=== PATIENT | female | born 1940 | race Caucasian/White ===

== ENCOUNTER 2024-03-01 13:53 | Emergency (ER) | payer MEDICARE, SELFPAY ==
[2024-03-01] VITALS (24 sets, daily range): BP systolic 143–224; BP diastolic 65–112; PULSE 58–83; RESP 13–36; TEMP 37.2; O2SAT 96–100; BMI 27.3
[2024-03-01 14:42] LABS: Add Manual Diff / Slide Review NO; Basophils Absolute Auto 100 /uL (0-100); Eosinophils Absolute Auto 100 /uL (0-450); Eosinophils Percent Auto 1.8 % (2-4); Hematocrit 37.7 % (36-46); Hemoglobin 12.7 g/dL (12.0-16.0); Lymphocytes Absolute Auto 1200 /uL (1100-4500); Lymphocytes Percent Auto 19.7 % (25-40); Mean Corpuscular HGB Conc 33.5 % (30-36); Mean Corpuscular Hemoglobin 29.6 PG (26-34); Mean Corpuscular Volume 88.2 fL (80-100); Monocytes Absolute Auto 600 /uL (0-900); Monocytes Percent Auto 9.7 % (3-14); Neutrophils Absolute Auto 4100 /uL (1500-7000); Neutrophils Percent Auto 67.8 % (50-75); Platelet Count 218 X10^3/uL (150-400); Red Blood Cell Count 4.28 X10^6/uL (4.0-5.2); Red Cell Distribution Width 13.9 % (11.6-14.8)
[2024-03-01 14:48] LABS: Alanine Aminotransferase 572 IU/L (<35); Albumin 4.6 g/dL (3.5-5.0); Albumin Globulin Ratio 1.3 (1.0-2.8); Alkaline Phosphatase 626 U/L (38-126); Aspartate Aminotransferase 412 IU/L (14-36); Bilirubin Total 4.8 mg/dL (0.2-1.3); Blood Urea Nitrogen 17 mg/dL (7-17); Calcium 9.5 mg/dL (8.4-10.2); Carbon Dioxide 26 mmol/L (22-32); Chloride 103 mmol/L (98-107); Estimated Glomerular Filt Rate 49 mL/min (>60); Globulin 3.5 g/dL (1.7-4.1); Glucose 226 mg/dL (80-110); HEMOLYSIS < 15 (0-50); Potassium 4.2 mmol/L (3.4-5.1); Sodium 136 mmol/L (137-145); Total Protein 8.1 g/dL (6.3-8.2)
[2024-03-01 14:55] LABS: Lipase 2391 U/L (23-300)
--- NOTE | 2024-03-01 16:19 | ED_ITS ---
HPI - General Adult <Qing Cornejo MD - Last Filed: 03/02/24 17:37> General Chief complaint: Abdominal Pain Stated complaint: abd pain, pt turning yellow Time Seen by Provider: 03/01/24 16:19 Source: patient Mode of arrival: Ambulatory History of Present Illness HPI narrative: 83-year-old woman with a history of hypertension, asthma, chronic diastolic heart failure, kidney disease reflux recently admitted to [facility] February 04 through the with hyponatremia continues taking salt tablets and presents today complaining of lower abdominal pain, knee on yellow urine and her daughters report that they were concerned that she was developing jaundice. She has not complaining of upper abdominal pain, nausea, vomiting. Headache she has not having any fevers. Related Data Home Medications Medication Instructions Recorded Confirmed albuterol 90 mcg/actuation aerosol 90 mcg inhalation PRN Wheezing 03/02/24 inhaler amlodipine 5 mg tablet 5 mg PO DAILY 03/02/24 03/02/24 aspirin 81 mg tablet,delayed 81 mg PO DAILY 03/02/24 03/02/24 release cholecalciferol (vitamin D3) 25 25 mcg PO DAILY 03/02/24 03/02/24 mcg (1,000 unit) tablet citalopram 20 mg tablet 20 mg PO DAILY 03/02/24 03/02/24 fluticasone propionate 50 1 spray intranasal DAILY PRN 03/02/24 03/02/24 mcg/actuation nasal Congestion spray,suspension losartan 100 mg tablet 100 mg PO DAILY 03/02/24 03/02/24 simvastatin 20 mg tablet 20 mg PO ONCE PM 03/02/24 03/02/24 Allergies Allergy/AdvReac Type Severity Reaction Status Date / Time hydrochlorothiazide AdvReac Rash Verified 03/02/24 03:19 lisinopril AdvReac Cough Verified 03/02/24 03:19 Patient History <Qing Cornejo MD - Last Filed: 03/02/24 17:37> Social History Smoking Status: Never smoker Smoking Status: Never smoker Substance Use Type: does not use Exam <Qing Cornejo MD - Last Filed: 03/02/24 17:37> Initial Vital Signs Initial Vital Signs: Vital Signs Temperature 99 F 03/01/24 14:06 Pulse Rate 78 03/01/24 14:06 Respiratory Rate 16 03/01/24 14:06 Blood Pressure 168/69 H 03/01/24 14:06 Pulse Oximetry 96 03/01/24 14:06 Oxygen Delivery Method Room Air 03/01/24 14:06 <Julianna Lazo MD - Last Filed: 03/02/24 17:59> Initial Vital Signs Initial Vital Signs: Vital Signs Temperature 99 F 03/01/24 14:06 Pulse Rate 78 03/01/24 14:06 Respiratory Rate 16 03/01/24 14:06 Blood Pressure 168/69 H 03/01/24 14:06 Pulse Oximetry 96 03/01/24 14:06 Oxygen Delivery Method Room Air 03/01/24 14:06 Const: Awake, alert, no acute distress Eyes: Scleral icterus present Cardiac: regular rate, regular rhythm RESP: unlabored, clear bilaterally, no wheezing GI: Soft, midepigastric and right upper quadrant tenderness to deep palpation, no rebound or guarding Skin: Warm, Dry, mild jaundice noticed Neuro: AO x3, CN II-XII grossly intact, moves all extremities Course <Qing Cornejo MD - Last Filed: 03/02/24 17:37> Orders Ordered: ED Orders 03/02/24 09:33 PT [Prothrombin Time INR] Stat PTT [PTT Partial Thromboplastin Vern] Stat Bisacodyl (Bisacodyl 5 Mg Tablet) 10 mg PO DAILY [facility] Last Admin: 03/02/24 09:22 Dose: 10 mg Documented By: KRISHNA Hydromorphone HCl (Hydromorphone 0.5 Mg Inj) 0.5 mg IV Q15MIN PRN PRN Reason: Pain, Last Admin: 03/02/24 07:07 Dose: 0.5 mg Documented By: JULIETTE Ceftriaxone Sodium 2,000 mg/ (Sodium Chloride) 100 mls @ 200 mls/hr IV DAILY [facility] Last Infusion: 03/02/24 09:56 Dose: Infused Documented By: Admin: 03/02/24 09:18 Dose: 200 mls/hr Documented By: KRISHNA Ondansetron HCl (Ondansetron 4 Mg Odt) 4 mg PO NOW PRN PRN Reason: Nausea And Vomiting Ondansetron HCl (Ondansetron 4 Mg/2 Ml Inj) 4 mg IV NOW PRN PRN Reason: Nausea And Vomiting Last Admin: 03/02/24 07:05 Dose: 4 mg Documented By: JULIETTE Oxycodone/Acetaminophen (Oxycodone/Acetaminophen 5/325 Tablet) 1 tab PO Q6HR [facility] [place] Last Admin: 03/02/24 13:25 Dose: 1 tab Documented By: GIOVANI Discontinued Medications Amlodipine Besylate (Amlodipine 5 Mg Tablet) 5 mg PO NOW ONE Stop: 03/02/24 07:01 Last Admin: 03/02/24 08:06 Dose: 5 mg Documented By: KRISHNA Losartan Potassium (Losartan 50 Mg Tablet) 100 mg PO NOW ONE Stop: 03/02/24 07:01 Last Admin: 03/02/24 08:07 Dose: Not Given Documented By: KRISHNA Vital Signs Vital signs: Vital Signs - 8 hr 03/02/24 10:00 03/02/24 10:30 03/02/24 11:00 Pulse Rate 65 66 63 Respiratory Rate 24 Blood Pressure Pulse Oximetry 03/02/24 11:30 03/02/24 11:58 03/02/24 11:58 Pulse Rate 62 65 Respiratory Rate Blood Pressure 133/60 Pulse Oximetry 99 03/02/24 12:00 03/02/24 13:12 03/02/24 13:30 Pulse Rate 67 69 64 Respiratory Rate Blood Pressure Pulse Oximetry 98 98 03/02/24 14:00 03/02/24 14:30 03/02/24 15:00 Pulse Rate 65 64 68 Respiratory Rate Blood Pressure Pulse Oximetry 96 95 97 03/02/24 15:30 03/02/24 16:26 03/02/24 16:27 Pulse Rate 70 101 H Respiratory Rate Blood Pressure 181/75 H Pulse Oximetry 96 97 03/02/24 16:27 03/02/24 16:30 03/02/24 17:00 Pulse Rate 80 73 65 Respiratory Rate 17 20 Blood Pressure Pulse Oximetry 97 97 94 03/02/24 17:00 03/02/24 17:30 Pulse Rate 65 Respiratory Rate 17 Blood Pressure 133/63 Pulse Oximetry 96 <Julianna Lazo MD - Last Filed: 03/02/24 17:59> Orders Ordered: ED Orders 03/02/24 09:33 PT [Prothrombin Time INR] Stat PTT [PTT Partial Thromboplastin Vern] Stat Bisacodyl (Bisacodyl 5 Mg Tablet) 10 mg PO DAILY [facility] Last Admin: 03/02/24 09:22 Dose: 10 mg Documented By: KRISHNA Hydromorphone HCl (Hydromorphone 0.5 Mg Inj) 0.5 mg IV Q15MIN PRN PRN Reason: Pain, Last Admin: 03/02/24 07:07 Dose: 0.5 mg Documented By: JULIETTE Ceftriaxone Sodium 2,000 mg/ (Sodium Chloride) 100 mls @ 200 mls/hr IV DAILY [facility] [place] Last Infusion: 03/02/24 09:56 Dose: Infused Documented By: Admin: 03/02/24 09:18 Dose: 200 mls/hr Documented By: KIRSHNA Ondansetron HCl (Ondansetron 4 Mg Odt) 4 mg PO NOW PRN PRN Reason: Nausea And Vomiting Ondansetron HCl (Ondansetron 4 Mg/2 Ml Inj) 4 mg IV NOW PRN PRN Reason: Nausea And Vomiting Last Admin: 03/02/24 07:05 Dose: 4 mg Documented By: JULIETTE Oxycodone/Acetaminophen (Oxycodone/Acetaminophen 5/325 Tablet) 1 tab PO Q6HR [facility] [place] Last Admin: 03/02/24 13:25 Dose: 1 tab Documented By: GIOVANI Discontinued Medications Amlodipine Besylate (Amlodipine 5 Mg Tablet) 5 mg PO NOW ONE Stop: 03/02/24 07:01 Last Admin: 03/02/24 08:06 Dose: 5 mg Documented By: RKISHNA Losartan Potassium (Losartan 50 Mg Tablet) 100 mg PO NOW ONE Stop: 03/02/24 07:01 Last Admin: 03/02/24 08:07 Dose: Not Given Documented By: KRISHNA Vital Signs Vital signs: Vital Signs - 8 hr 03/02/24 10:00 03/02/24 10:30 03/02/24 11:00 Pulse Rate 65 66 63 Respiratory Rate 24 Blood Pressure Pulse Oximetry 03/02/24 11:30 03/02/24 11:58 03/02/24 11:58 Pulse Rate 62 65 Respiratory Rate Blood Pressure 133/60 Pulse Oximetry 99 03/02/24 12:00 03/02/24 13:12 03/02/24 13:30 Pulse Rate 67 69 64 Respiratory Rate Blood Pressure Pulse Oximetry 98 98 03/02/24 14:00 03/02/24 14:30 03/02/24 15:00 Pulse Rate 65 64 68 Respiratory Rate Blood Pressure Pulse Oximetry 96 95 97 03/02/24 15:30 03/02/24 16:26 03/02/24 16:27 Pulse Rate 70 101 H Respiratory Rate Blood Pressure 181/75 H Pulse Oximetry 96 97 03/02/24 16:27 03/02/24 16:30 03/02/24 17:00 Pulse Rate 80 73 65 Respiratory Rate 17 20 Blood Pressure Pulse Oximetry 97 97 94 03/02/24 17:00 03/02/24 17:30 Pulse Rate 65 Respiratory Rate 17 Blood Pressure 133/63 Pulse Oximetry 96 Medical Decision Making <Qing Cornejo MD - Last Filed: 03/02/24 17:37> Lab Data 03/02/24 06:53 03/02/24 06:53 Labs: Lab Results 03/01/24 03/01/24 03/01/24 Range/Units 14:14 16:20 17:25 WBC 6.0 5.1 (4.5-11.0) X10^3/uL RBC 4.28 4.21 (4.0-5.2) X10^6/uL Hgb 12.7 12.2 (12.0-16.0) g/dL Hct 37.7 37.0 (36-46) % MCV 88.2 88.0 (80-100) fL MCH 29.6 29.1 (26-34) PG MCHC 33.5 33.1 (30-36) % RDW 13.9 14.0 (11.6-14.8) % Plt Count 218 196 (150-400) X10^3/uL Neut % (Auto) 67.8 59.6 (50-75) % Lymph % (Auto) 19.7 L 23.3 L (25-40) % [place] % (Auto) 9.7 14.0 (3-14) % Eos % (Auto) 1.8 L 2.1 (2-4) % Baso % (Auto) 1.0 1.0 (0-2) % Neut # (Auto) 4100 3000 (8589-7745) /uL Lymph # (Auto) 1200 1200 (5216-6514) /uL [place] # (Auto) 600 700 (0-900) /uL Eos # (Auto) 100 100 (0-450) /uL Baso # (Auto) 100 100 (0-100) /uL PT (9.4-12.5) SECONDS INR (0.9-1.3) APTT (25.1-36.5) SECONDS Sodium 136 L 136 L (137-145) mmol/L Potassium 4.2 4.3 (3.4-5.1) mmol/L Chloride 103 106 (98-107) mmol/L Carbon Dioxide 26 25 (22-32) mmol/L BUN 17 18 H (7-17) mg/dL Creatinine 1.13 H 1.01 (0.52-1.04) mg/dL Estimated GFR 49 L 56 L (>60) mL/min BUN/Creatinine Ratio 15.0 17.8 (6-22) Glucose 226 H 111 H D (80-110) mg/dL Calcium 9.5 9.2 (8.4-10.2) mg/dL Total Bilirubin 4.8 H 4.4 H (0.2-1.3) mg/dL AST 412 H 374 H (14-36) IU/L ALT 572 H 531 H (<35) IU/L Alkaline Phosphatase 626 H 612 H (38-126) U/L Total Protein 8.1 7.4 (6.3-8.2) g/dL Albumin 4.6 4.2 (3.5-5.0) g/dL Globulin 3.5 3.2 (1.7-4.1) g/dL Albumin/Globulin Ratio 1.3 1.3 (1.0-2.8) Lipase 2391 H (23-300) U/L Urine RBC None seen (0-5/HPF) Urine WBC 1-5/hpf (0-5/HPF) Ur Squamous Epith Cells 1-5 /hpf (0-5/HPF) Urine Bacteria Many (>30) H (None) Ur Culture Indicated? Specimen cultured Vol Urine Centrifuged 10ml (spun) 03/02/24 03/02/24 Range/Units 06:53 09:33 WBC 6.0 (4.5-11.0) X10^3/uL RBC 4.17 (4.0-5.2) X10^6/uL Hgb 12.2 (12.0-16.0) g/dL Hct 36.6 (36-46) % MCV 87.8 (80-100) fL MCH 29.2 (26-34) PG MCHC 33.2 (30-36) % RDW 14.0 (11.6-14.8) % Plt Count 219 (150-400) X10^3/uL Neut % (Auto) 68.2 (50-75) % Lymph % (Auto) 16.9 L (25-40) % [place] % (Auto) 11.5 (3-14) % Eos % (Auto) 2.4 (2-4) % Baso % (Auto) 1.0 (0-2) % Neut # (Auto) 4100 (1016-3651) /uL Lymph # (Auto) 1000 L (8714-2055) /uL [place] # (Auto) 700 (0-900) /uL Eos # (Auto) 100 (0-450) /uL Baso # (Auto) 100 (0-100) /uL PT 12.9 H (9.4-12.5) SECONDS INR 1.1 (0.9-1.3) APTT 34 (25.1-36.5) SECONDS Sodium 136 L (137-145) mmol/L Potassium 4.4 (3.4-5.1) mmol/L Chloride 105 (98-107) mmol/L Carbon Dioxide 25 (22-32) mmol/L BUN 19 H (7-17) mg/dL Creatinine 1.02 (0.52-1.04) mg/dL Estimated GFR 55 L (>60) mL/min BUN/Creatinine Ratio 18.6 (6-22) Glucose 149 H (80-110) mg/dL Calcium 9.6 (8.4-10.2) mg/dL Total Bilirubin 5.2 H (0.2-1.3) mg/dL AST 444 H (14-36) IU/L ALT 597 H (<35) IU/L Alkaline Phosphatase 648 H (38-126) U/L Total Protein 7.7 (6.3-8.2) g/dL Albumin 4.2 (3.5-5.0) g/dL Globulin 3.5 (1.7-4.1) g/dL Albumin/Globulin Ratio 1.2 (1.0-2.8) Lipase (23-300) U/L Urine RBC (0-5/HPF) Urine WBC (0-5/HPF) Ur Squamous Epith Cells (0-5/HPF) Urine Bacteria (None) Ur Culture Indicated? Vol Urine Centrifuged Urine Dip Bedside Urine Glucose 100 mg/dl Bedside Urine Bilirubin - Negative Bedside Urine Ketone - Negative Urine Specific [place] 1.015 Bedside Urine Occult Blood - Negative Bedside Urine pH 6.0 Bedside Urine Protein - Negative Bedside Urine Urobilinogen - Negative Bedside Urine Nitrite - Negative Bedside Urine Leukocytes +/- 15 Esterase Point of care testing: Urine Dip Bedside Urine Glucose 100 mg/dl Bedside Urine Bilirubin - Negative Bedside Urine Ketone - Negative Urine Specific [place] 1.015 Bedside Urine Occult Blood - Negative Bedside Urine pH 6.0 Bedside Urine Protein - Negative Bedside Urine Urobilinogen - Negative Bedside Urine Nitrite - Negative Bedside Urine Leukocytes +/- [address] scan - abdomen/pelvis: Radiologist's Impression: PROCEDURE: CT ABDOMEN PELVIS W CON INDICATIONS: obstructive liver studies with elevated lipase TECHNIQUE: After the administration of intravenous contrast, axial sections acquired from the lung bases to the pubic symphysis. Coronal and sagittal reformats were performed. For radiation dose reduction, the following was used: automated exposure control, adjustment of mA and/or kV according to patient size. COMPARISON: [facility], CT, CT ABDOMEN PELVIS WITHOUT CONTRAST, 06/24/2021, 12:06. FINDINGS: Lower thorax: The lung bases are clear. Heart size normal. No hiatal hernia. Liver: 7 mm low-density mass lesion in the right hepatic lobe. Additional 1.3 cm low-density lesion in the superior posterior aspect of the right hepatic lobe show surrounding edema. Third low-density lesion at the dome of the liver measures 8 mm, an additional subcentimeter inferior right hepatic lobe lesion present Biliary system: As below Pancreas: There is a small low-density pancreatic head mass measuring 1.4 x 1.9 cm axial by 2.0 cm cranial caudal resulting in obstruction the common bile duct the level of the pancreatic head common bile duct is dilated 1.5 cm. Intrahepatic biliary ductal dilatation as well as gallbladder distension noted. Spleen: Normal in size and density. Adrenals: Normal morphology and density. Reproductive system: Unremarkable as visualized. Urinary system: Normal renal size and attenuation. Left renal cysts measure up to 3.1 cm. No renal calculi, hydronephrosis, or solid mass present. Small focus of air in the urinary bladder probably reflects recent instrumentation. Gastrointestinal system: The bowel is unremarkable without evidence of bowel obstruction or inflammation. The stomach appears unremarkable. Multiple diverticula arise from the sigmoid colon without evidence of diverticulitis. Appendix: No findings to suggest acute appendicitis. Peritoneal spaces: No mesenteric or retroperitoneal adenopathy. No free air. No free fluid. Vasculature: The IVC, aorta and iliac vasculature are unremarkable. Abdominal wall: Abdominal wall intact without evidence of ventral or inguinal hernias. Musculoskeletal: Normal bone mineralization. Degenerative disc disease and arthropathy noted in lower lumbar spine. No acute fractures. 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 on 03/01/2024 at 16:35 MDM Narrative Medical decision making narrative: Dr. Lazo -care of patient is signed out to me by Dr. Riley at 1800. Laboratory work compared from [facility], appears to show a marked increase in liver enzymes. Patient's liver enzymes at the end of January were within normal limits, today they are notable for a initial T bili of 4.8, AST 412, ALT 572, alkaline phos 626, lipase 2391. CT of the abdomen and pelvis is pending. CT of the abdomen and pelvis shows a pancreatic head mass with what appeared to be some focal areas of metastasis to the liver. Call placed to [facility] GI. Spoke with on-call skein mercerizing machine operator, who recommended patient be transferred for EUS as well as ERCP to see if the obstruction could be opened up. [facility] unfortunately does not have any available beds and we will continue to look for placement. Patient and her family updated on lab and imaging results at bedside as well as the mass seen on CT scan. They are in agreement with transfer at this time. CC: Daughters are concerned that ?she is turning yellow Complicating co-morbidities: Hyponatremia with hospital admission February 04, hypertension, hyperlipidemia Data collected from: patient, daughters Medical records reviewed: Discharge summary from [facility] on February 06 is reviewed. The time liver studies were entirely unremarkable, there was no abdominal pain CT scans of the abdomen were not indicated nor done. Differential considered: Choledocholithiasis, pancreatic cancer, ascending cholangitis, extrinsic ductal obstruction Exam documented above, pertinent findings include: Mild jaundice, otherwise fairly benign exam with minimal lower abdomen tenderness but no abnormalities over the upper abdomen Lab Test results independently reviewed as above. Pertinent findings: CBC is unremarkable Chemistries show sodium normal today at 1:36 a.m. however she has a concerning pattern of liver obstruction with bili elevated at 4.8, AST of 412, ALT at 572, alk-phos Lipase was elevated at 2391 at 6:26 a.m.bilirubin is up to 5.2, AST increased to 444, ALT increased to 597, alk-phos increased to 648 PT/Ptt are unremarkable Imaging studies independently reviewed: Pancreatic head mass approximately 2 cm with multifocal hepatic metastases and distal common bile duct obstruction appreciated Consultations: Multiple phone calls over the night to try and facilitate transfer to facility with ERCP. Apparently discussion with skein mercerizing machine operator last night indicated that stent may in fact may be helpful and symptomatic relief. 830am we will continue phone calls looking for facility that may be able to place pancreatic stent. We will expand search beyond [facility], [facility] and [facility] and will push images as requested. 930am [facility] Hernández. Will accept pending bed. Discussed with DONTA Lopez. Will need hospitaist admit. 1022 Hospitalist accepts, Dr Navas. waiting for bed availablity Treatments: Fluids, pain medication, routine blood pressure medications given 830 am we will begin ceftriaxone prophylactic treatment while we are continuing to look for treatment options for transfer Re-evaluations: 03/02 830 patient is re-evaluated, reexamined. I have reviewed with her in detail the lab work, the findings, the concerns with the CT scan, the need for ERCP with stenting as well as the fact that this is very likely a metastatic pancreatic cancer. She understands the delay in transfer and I will update her as we continue to talk with facilities throughout the day. She is concerned with pain. And we discussed starting her on scheduled Percocet every 6 hours with this will add stool softener. Will re-evaluate efficacy and side effects 1pm family conference with 3 daughters. Diagnosis, concerns, plans and reason for extended time to transfer explain. Questions are answered Discussion: 83-year-old woman with abdominal pain, CT scan showing a 2 cm mass in the head of the pancreas causing common bile duct obstruction with probable hepatic metastases. Obstructive pattern liver enzymes are increasing. There was no evidence of acute infection at this time but ceftriaxone prophylactically is initiated. We are continuing to look for hospitals for transfer Beds and accepting physicians available at [facility]. Patient is aware of transfer, BLS transport expected at 5:30 p.m.. Patient remains stable and is safe for transport at this <Julianna Lazo MD - Last Filed: 03/02/24 17:59> Lab Data Labs: Lab Results 03/01/24 03/01/24 03/01/24 Range/Units 14:14 16:20 17:25 WBC 6.0 5.1 (4.5-11.0) X10^3/uL RBC 4.28 4.21 (4.0-5.2) X10^6/uL Hgb 12.7 12.2 (12.0-16.0) g/dL Hct 37.7 37.0 (36-46) % MCV 88.2 88.0 (80-100) fL MCH 29.6 29.1 (26-34) PG MCHC 33.5 33.1 (30-36) % RDW 13.9 14.0 (11.6-14.8) % Plt Count 218 196 (150-400) X10^3/uL Neut % (Auto) 67.8 59.6 (50-75) % Lymph % (Auto) 19.7 L 23.3 L (25-40) % [place] % (Auto) 9.7 14.0 (3-14) % Eos % (Auto) 1.8 L 2.1 (2-4) % Baso % (Auto) 1.0 1.0 (0-2) % Neut # (Auto) 4100 3000 (8624-0745) /uL Lymph # (Auto) 1200 1200 (3294-7920) /uL [place] # (Auto) 600 700 (0-900) /uL Eos # (Auto) 100 100 (0-450) /uL Baso # (Auto) 100 100 (0-100) /uL PT (9.4-12.5) SECONDS INR (0.9-1.3) APTT (25.1-36.5) SECONDS Sodium 136 L 136 L (137-145) mmol/L Potassium 4.2 4.3 (3.4-5.1) mmol/L Chloride 103 106 (98-107) mmol/L Carbon Dioxide 26 25 (22-32) mmol/L BUN 17 18 H (7-17) mg/dL Creatinine 1.13 H 1.01 (0.52-1.04) mg/dL Estimated GFR 49 L 56 L (>60) mL/min BUN/Creatinine Ratio 15.0 17.8 (6-22) Glucose 226 H 111 H D (80-110) mg/dL Calcium 9.5 9.2 (8.4-10.2) mg/dL Total Bilirubin 4.8 H 4.4 H (0.2-1.3) mg/dL AST 412 H 374 H (14-36) IU/L ALT 572 H 531 H (<35) IU/L Alkaline Phosphatase 626 H 612 H (38-126) U/L Total Protein 8.1 7.4 (6.3-8.2) g/dL Albumin 4.6 4.2 (3.5-5.0) g/dL Globulin 3.5 3.2 (1.7-4.1) g/dL Albumin/Globulin Ratio 1.3 1.3 (1.0-2.8) Lipase 2391 H (23-300) U/L Urine RBC None seen (0-5/HPF) Urine WBC 1-5/hpf (0-5/HPF) Ur Squamous Epith Cells 1-5 /hpf (0-5/HPF) Urine Bacteria Many (>30) H (None) Ur Culture Indicated? Specimen cultured Vol Urine Centrifuged 10ml (spun) 03/02/24 03/02/24 Range/Units 06:53 09:33 WBC 6.0 (4.5-11.0) X10^3/uL RBC 4.17 (4.0-5.2) X10^6/uL Hgb 12.2 (12.0-16.0) g/dL Hct 36.6 (36-46) % MCV 87.8 (80-100) fL MCH 29.2 (26-34) PG MCHC 33.2 (30-36) % RDW 14.0 (11.6-14.8) % Plt Count 219 (150-400) X10^3/uL Neut % (Auto) 68.2 (50-75) % Lymph % (Auto) 16.9 L (25-40) % [place] % (Auto) 11.5 (3-14) % Eos % (Auto) 2.4 (2-4) % Baso % (Auto) 1.0 (0-2) % Neut # (Auto) 4100 (7929-9847) /uL Lymph # (Auto) 1000 L (8217-5952) /uL [place] # (Auto) 700 (0-900) /uL Eos # (Auto) 100 (0-450) /uL Baso # (Auto) 100 (0-100) /uL PT 12.9 H (9.4-12.5) SECONDS INR 1.1 (0.9-1.3) APTT 34 (25.1-36.5) SECONDS Sodium 136 L (137-145) mmol/L Potassium 4.4 (3.4-5.1) mmol/L Chloride 105 (98-107) mmol/L Carbon Dioxide 25 (22-32) mmol/L BUN 19 H (7-17) mg/dL Creatinine 1.02 (0.52-1.04) mg/dL Estimated GFR 55 L (>60) mL/min BUN/Creatinine Ratio 18.6 (6-22) Glucose 149 H (80-110) mg/dL Calcium 9.6 (8.4-10.2) mg/dL Total Bilirubin 5.2 H (0.2-1.3) mg/dL AST 444 H (14-36) IU/L ALT 597 H (<35) IU/L Alkaline Phosphatase 648 H (38-126) U/L Total Protein 7.7 (6.3-8.2) g/dL Albumin 4.2 (3.5-5.0) g/dL Globulin 3.5 (1.7-4.1) g/dL Albumin/Globulin Ratio 1.2 (1.0-2.8) Lipase (23-300) U/L Urine RBC (0-5/HPF) Urine WBC (0-5/HPF) Ur Squamous Epith Cells (0-5/HPF) Urine Bacteria (None) Ur Culture Indicated? Vol Urine Centrifuged Urine Dip Bedside Urine Glucose 100 mg/dl Bedside Urine Bilirubin - Negative Bedside Urine Ketone - Negative Urine Specific [place] 1.015 Bedside Urine Occult Blood - Negative Bedside Urine pH 6.0 Bedside Urine Protein - Negative Bedside Urine Urobilinogen - Negative Bedside Urine Nitrite - Negative Bedside Urine Leukocytes +/- 15 Esterase Point of care testing: Urine Dip Bedside Urine Glucose 100 mg/dl Bedside Urine Bilirubin - Negative Bedside Urine Ketone - Negative Urine Specific [place] 1.015 Bedside Urine Occult Blood - Negative Bedside Urine pH 6.0 Bedside Urine Protein - Negative Bedside Urine Urobilinogen - Negative Bedside Urine Nitrite - Negative Bedside Urine Leukocytes +/- 15 Esterase MDM Narrative Medical decision making narrative: Dr. Lazo -care of patient is signed out to me by Dr. Riley at 1800. Laboratory work compared from [facility], appears to show a marked increase in liver enzymes. Patient's liver enzymes at the end of January were within normal limits, today they are notable for a initial T bili of 4.8, AST 412, ALT 572, alkaline phos 626, lipase 2391. CT of the abdomen and pelvis is pending. CT of the abdomen and pelvis shows a pancreatic head mass with what appeared to be some focal areas of metastasis to the liver. Call placed to [facility] GI. Spoke with on-call skein mercerizing machine operator, who recommended patient be transferred for EUS as well as ERCP to see if the obstruction could be opened up. [facility] unfortunately does not have any available beds and we will continue to look for placement. Patient and her family updated on lab and imaging results at bedside as well as the mass seen on CT scan. They are in agreement with transfer at this time. Discharge Plan Departure Patient Disposition: [facility] Clinical Impression: Mass of pancreas, Pancreatitis due to obstruction of pancreatic duct Prescriptions: No Action amlodipine 5 mg tablet 5 mg PO DAILY citalopram 20 mg tablet 20 mg PO DAILY losartan 100 mg tablet 100 mg PO DAILY simvastatin 20 mg tablet 20 mg PO ONCE PM albuterol 90 mcg/actuation Aerosol 90 mcg INHALATION PRN (Reason: Wheezing) aspirin 81 mg Tablet,Delayed Release (Dr/Ec) 81 mg PO DAILY cholecalciferol (vitamin D3) 25 mcg (1,000 unit) Tablet 25 mcg PO DAILY fluticasone propionate 50 mcg/actuation [place],Suspension 1 spray INTRANASAL DAILY PRN (Reason: Congestion) Rx Instructions: administer into each nostril
--- NOTE | 2024-03-01 16:25 | DI.CT.S_ITS ---
PROCEDURE: CT ABDOMEN PELVIS W CON INDICATIONS: obstructive liver studies with elevated lipase TECHNIQUE: After the administration of intravenous contrast, axial sections acquired from the lung bases to the pubic symphysis. Coronal and sagittal reformats were performed. For radiation dose reduction, the following was used: automated exposure control, adjustment of mA and/or kV according to patient size. COMPARISON: [facility], CT, CT ABDOMEN PELVIS WITHOUT CONTRAST, 06/24/2021, 12:06. FINDINGS: Lower thorax: The lung bases are clear. Heart size normal. No hiatal hernia. Liver: 7 mm low-density mass lesion in the right hepatic lobe. Additional 1.3 cm low-density lesion in the superior posterior aspect of the right hepatic lobe show surrounding edema. Third low-density lesion at the dome of the liver measures 8 mm, an additional subcentimeter inferior right hepatic lobe lesion present Biliary system: As below Pancreas: There is a small low-density pancreatic head mass measuring 1.4 x 1.9 cm axial by 2.0 cm cranial caudal resulting in obstruction the common bile duct the level of the pancreatic head common bile duct is dilated 1.5 cm. Intrahepatic biliary ductal dilatation as well as gallbladder distension noted. Spleen: Normal in size and density. Adrenals: Normal morphology and density. Reproductive system: Unremarkable as visualized. Urinary system: Normal renal size and attenuation. Left renal cysts measure up to 3.1 cm. No renal calculi, hydronephrosis, or solid mass present. Small focus of air in the urinary bladder probably reflects recent instrumentation. Gastrointestinal system: The bowel is unremarkable without evidence of bowel obstruction or inflammation. The stomach appears unremarkable. Multiple diverticula arise from the sigmoid colon without evidence of diverticulitis. Appendix: No findings to suggest acute appendicitis. Peritoneal spaces: No mesenteric or retroperitoneal adenopathy. No free air. No free fluid. Vasculature: The IVC, aorta and iliac vasculature are unremarkable. Abdominal wall: Abdominal wall intact without evidence of ventral or inguinal hernias. Musculoskeletal: Normal bone mineralization. Degenerative disc disease and arthropathy noted in lower lumbar spine. No acute fractures. 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 on 03/01/2024 at 16:35
[2024-03-01 16:52] LABS: Bacteria Urine Many (>30); Culture Indicated Urine Specimen Cultured; RBC Urine None Seen (0-5/HPF); Squamous Epithelial Cell Urine 1-5 /HPF (0-5/HPF); Urine Volume 10mL (spun); WBC Urine 1-5/HPF (0-5/HPF)
[2024-03-01 17:40] LABS: Add Manual Diff / Slide Review NO; Basophils Absolute Auto 100 /uL (0-100); Eosinophils Absolute Auto 100 /uL (0-450); Eosinophils Percent Auto 2.1 % (2-4); Hemoglobin 12.2 g/dL (12.0-16.0); Lymphocytes Absolute Auto 1200 /uL (1100-4500); Lymphocytes Percent Auto 23.3 % (25-40); Mean Corpuscular HGB Conc 33.1 % (30-36); Mean Corpuscular Hemoglobin 29.1 PG (26-34); Monocytes Absolute Auto 700 /uL (0-900); Neutrophils Absolute Auto 3000 /uL (1500-7000); Neutrophils Percent Auto 59.6 % (50-75); Platelet Count 196 X10^3/uL (150-400); Red Blood Cell Count 4.21 X10^6/uL (4.0-5.2); White Blood Cell Count 5.1 X10^3/uL (4.5-11.0)
[2024-03-01 17:47] LABS: Alanine Aminotransferase 531 IU/L (<35); Albumin 4.2 g/dL (3.5-5.0); Albumin Globulin Ratio 1.3 (1.0-2.8); Alkaline Phosphatase 612 U/L (38-126); Aspartate Aminotransferase 374 IU/L (14-36); BUN Creatinine Ratio 17.8 (6-22); Bilirubin Total 4.4 mg/dL (0.2-1.3); Blood Urea Nitrogen 18 mg/dL (7-17); Calcium 9.2 mg/dL (8.4-10.2); Carbon Dioxide 25 mmol/L (22-32); Chloride 106 mmol/L (98-107); Estimated Glomerular Filt Rate 56 mL/min (>60); Globulin 3.2 g/dL (1.7-4.1); Glucose 111 mg/dL (80-110); HEMOLYSIS < 15 (0-50); Potassium 4.3 mmol/L (3.4-5.1); Sodium 136 mmol/L (137-145); Total Protein 7.4 g/dL (6.3-8.2)
--- NOTE | 2024-03-01 23:33 | PC.NURSE ---
Pt on list for transfer at [facility]. Called the following facilities for transfer, [facility], [facility], those facilities are at capacity at this time, informed to F/U after 0800 03/02/24 about bed availability. Pt placed on list with [facility] @ [id number]
--- NOTE | 2024-03-01 23:54 | PC.NURSE ---
[facility] called back at 1614 and said that they have called every hospital in [facility] and said that there are no immediate beds available overnight. The pt is currently on the waitlist for [facility], [facility], and [facility]. Out of those 3 hospitals, no beds overnight but they will try to get a bed available for the pt in the morning after shift change. CHAPIN Lombardo notified and Dr. Lazo notified.
[2024-03-02] VITALS (31 sets, daily range): BP systolic 126–181; BP diastolic 58–75; PULSE 59–101; RESP 16–24; O2SAT 94–99
[2024-03-02 07:02] LABS: Add Manual Diff / Slide Review NO; Basophils Absolute Auto 100 /uL (0-100); Eosinophils Absolute Auto 100 /uL (0-450); Eosinophils Percent Auto 2.4 % (2-4); Hematocrit 36.6 % (36-46); Hemoglobin 12.2 g/dL (12.0-16.0); Lymphocytes Absolute Auto 1000 /uL (1100-4500); Lymphocytes Percent Auto 16.9 % (25-40); Mean Corpuscular HGB Conc 33.2 % (30-36); Mean Corpuscular Hemoglobin 29.2 PG (26-34); Mean Corpuscular Volume 87.8 fL (80-100); Monocytes Absolute Auto 700 /uL (0-900); Monocytes Percent Auto 11.5 % (3-14); Neutrophils Absolute Auto 4100 /uL (1500-7000); Neutrophils Percent Auto 68.2 % (50-75); Platelet Count 219 X10^3/uL (150-400); Red Blood Cell Count 4.17 X10^6/uL (4.0-5.2)
[2024-03-02] MEDS: ONDANSETRON 4 MG/2 ML INJ IV (07:05)
[2024-03-02] MEDS: HYDROMORPHONE 0.5 MG INJ IV (07:07)
[2024-03-02 07:21] LABS: Alanine Aminotransferase 597 IU/L (<35); Albumin 4.2 g/dL (3.5-5.0); Albumin Globulin Ratio 1.2 (1.0-2.8); Alkaline Phosphatase 648 U/L (38-126); Aspartate Aminotransferase 444 IU/L (14-36); BUN Creatinine Ratio 18.6 (6-22); Bilirubin Total 5.2 mg/dL (0.2-1.3); Blood Urea Nitrogen 19 mg/dL (7-17); Calcium 9.6 mg/dL (8.4-10.2); Carbon Dioxide 25 mmol/L (22-32); Chloride 105 mmol/L (98-107); Estimated Glomerular Filt Rate 55 mL/min (>60); Globulin 3.5 g/dL (1.7-4.1); Glucose 149 mg/dL (80-110); HEMOLYSIS < 15 (0-50); Potassium 4.4 mmol/L (3.4-5.1); Sodium 136 mmol/L (137-145); Total Protein 7.7 g/dL (6.3-8.2)
[2024-03-02] MEDS: AMLODIPINE 5 MG TABLET PO (08:06)
--- NOTE | 2024-03-02 08:42 | PC.NURSE ---
Transfer Status Update 08 - [facility] called; talked with Ashley. Reports that is near capacity, as well as did not receive any imaging taken of the patient. Images pushed, waiting for call back. 08 - [facility] called; talk to the Dietitian Teacher Flo. Reports [facility] is completely full and boarding sixteen in their ER. Chance for a bed near-impossible. 08 - [facility] called; talked with clinical research nurse coordinator Tyler. Reports that they're completely full, boarding many in their ER, and have ten other transfers they are actively working on. Told to call back in the afternoon.
[2024-03-02] MEDS: cefTRIAXone 2,000 MG in SODIUM CHLORIDE 0.9% 100 ML 200 MG IV (09:18)
[2024-03-02] MEDS: BISACODYL 5 MG TABLET 10 MG PO (09:22)
[2024-03-02 10:16] LABS: INR 1.1 (0.9-1.3); Prothrombin Time 12.9 SECONDS (9.4-12.5)
[2024-03-02 10:18] LABS: PTT Partial Thromboplastin Tim 34 SECONDS (25.1-36.5)
[2024-03-02] MEDS: OXYCODONE/ACETAMINOPHEN 5/325 TABLET 1 TAB PO (13:25)
== END 2024-03-02 18:03 | disposition short-term general hospital (02) ==
PROVIDERS: Emergency Medicine; Emergency Provider Emergency Medicine
DX: K85.90 Acute pancreatitis without necrosis or infection, unspecified (principal); K86.89 Other specified diseases of pancreas
CPT/HCPCS: 36415; 74177; 80053; 81003; 81015; 83690; 85025; 85610; 85730; 87077; 87086; 87186; 93005; 96365; 96375; 99284; J0696; J1170; J2405; Q9967